=== PATIENT | male | born 1935 | race Caucasian/White ===

== ENCOUNTER 2016-11-22 12:43 | Emergency (ER) | payer MEDICARE ==
[2016-11-22 13:07] VITALS: BP 129/63
[2016-11-22] MEDS ORDERED: Tetan/Diph/Pertus SYR(Tdap)* 0.5 ML SYR(BOOSTRIX) use SYR IM ONE (13:58)
--- NOTE | 2016-11-22 14:27 | ED ---
Laceration/Wound HPI - HPI Summary HPI Summary: 81 yo male presents with left volar wrist laceration after slipping while using a box stamper. He was holding up a bag of ice melter with his left hand, when he used a box stamper with his right hand and slipped cutting himself. Patient' s tetanus is not up to date. He denies numbness, tingling or weakness. Patient can move wrist and all extremities. Patient denies copious bleeding. He does take an aspirin for his h/o heart disease. - History of Current Complaint Stated Complaint: LT WRIST LAC Pain Intensity: 0 - Allergy/Home Medications Allergies/Adverse Reactions: Allergies Allergy/AdvReac Type Severity Reaction Status Date / Time Cumin Oil Allergy Severe Anaphylatic Verified 03/19/16 12:16 Shock Pyridoxine [From Beesix] Allergy anaphalacti Verified 08/03/13 08:22 c PMH/Surg Hx/FS Hx/Imm Hx Endocrine/Hematology History: Reports: Hx Thyroid Disease - synthroid Cardiovascular History: Reports: Hx Aneurysm - known AAA, Hx Angina, Hx Angioplasty - 1992, Hx Coronary Artery Disease, Hx Hypercholesterolemia, Hx Hypertension, Hx Myocardial Infarction, Other Cardiovascular Problems/Disorders - thoracic aneurysm (5.5 cm?) History: Reports: Hx Kidney Stones - after first [place] Musculoskeletal History: Reports: Hx Gout - "long time ago" Sensory History: Reports: Hx Contacts or Glasses Opthamlomology History: Reports: Hx Contacts or Glasses - Surgical History Surgery Procedure, Year, and Place: cardiac bypass 2002 Hx Anesthesia Reactions: No Infectious Disease History: No Infectious Disease History: Denies: Hx of Known/Suspected MRSA, Hx Shingles, Hx Tuberculosis, Traveled Outside the [place] in Last 30 Days - Family History Known Family History: Positive: Cardiac Disease - Social History Lives: Alone Alcohol Use: None Substance Use Type: Reports: None Smoking Status (MU): Never Smoked Tobacco Review of Systems All Other Systems Reviewed And Are Negative: Yes Physical Exam - Summary Physical Exam Summary: GENERAL: Well appearing, No acute distress, well nourished. HEENT: Head atraumatic/normocephalic, EOMI/RAVEN, conjunctiva clear NECK: Supple with normal range of motion during conversation. MUSCULOSKELETAL: Moves all extremities well. There is no peripheral edema. SKIN: Warm and dry, skin color reflects adequate perfusion. Left volar wrist with 1cm shallow laceration lateral orientation with slow bleeding controlled with pressure. Bleeding easily restarts with manipulation of the wound. Small underlying hematoma. N/v intact distal to injury. FROM of all digits and wrist. Strength of digits and wrist intact. NEUROLOGICAL: Patient is alert and appropriate. Cranial nerves are grossly intact. PSYCHIATRIC: Appropriate affect. Vital Signs On Initial Exam: Initial Vitals Temp Pulse Resp BP Pulse Ox 98.1 F 71 16 129/63 99 11/22/16 13:04 11/22/16 13:04 11/22/16 13:04 11/22/16 13:04 11/22/16 13:04 Procedures - Laceration/Wound Repair 1 Location: upper extremity Description: Linear Anesthesia: Local, 1.0% Length, Depth and Shape: left volar wrist 1cm laceration x 1mm. linear. slow bleeding. Wound examined no signs of tendon injury, examined through FROM of wrist and digits. Betadine Prep?: Yes - irrigated with saline copious Laceration/Wound Explored: clean Suture Type: Nylon - 5-0 Number of Sutures: 2 Layer Closure?: No Sterile Dressing Applied?: Yes - slight oozing at suture site. Minimal bleeding in bandage. Diagnostics - Vital Signs Vital Signs Temp Pulse Resp BP Pulse Ox 11/22/16 13:04 98.1 F 71 16 129/63 99 - Laboratory Lab Statement: Any lab studies that have been ordered have been reviewed, and results considered in the medical decision making process. Re-Evaluation - Re-Evaluation First Eval Change: Improved - Slight bleeding into bandage. Bandage replaced and no active bleeding. Laceration Repair Course/Dx - Course Assessment/Plan: 81yo male presents with laceration to left volar wrist after trying to open a bag of salt with a box stamper. History supports injury. No concern for self injurious behaviors. Slow persistent bleeding, without numbness , tingling or weakness. No signs/symptoms of tendon injury. N/v intact. Laceration repaired and tdap given. Some bleeding at sight of sutures, resolved with bandaging. Small hematoma at sight without expansion. Discussed watching for signs of infection. Patient to return with any problems, concerns or worsening symptoms. - Clinical Impression Provider Diagnoses: Laceration of wrist, Need for Tdap vaccination Discharge - Discharge Plan Condition: Good Disposition: HOME Patient Education Materials: Care For Your Stitches (ED), Laceration (ED) Referrals: Keli Dawson MD [Primary Care Provider] - 2 Days Additional Instructions: Please watch for signs of infection (redness, swelling or discharge). Please return with any problems, concerns or worsening symptoms. You should have your sutures removed in 10-12 days.
== END 2016-11-22 15:59 | disposition home or self-care (01) ==
LOC: ED 12:43
DX: S61.512A Laceration without foreign body of left wrist, initial encounter (principal); W26.0XXA Contact with knife, initial encounter; Y93.9 Activity, unspecified; Y92.9 Unspecified place or not applicable; Y99.9 Unspecified external cause status
CPT/HCPCS: 12001; 90471; 90715; 99282

== ENCOUNTER 2017-12-06 11:40 | Emergency (ER) | payer MEDICARE ==
[2017-12-06 13:23] LABS: ABS Basophils 0.1 10^3/ul (0-0.2); ABS Eosinophils 0.2 10^3/ul (0-0.6); ABS Monocytes 0.7 10^3/ul (0-0.8); ABS Neutrophils 4.4 10^3/ul (1.5-7.7); ABS Nucleated RBC 0 10^3/ul; Eosinophil % 2.1 % (0-6); Hematocrit 47 % (42-52); Hemoglobin 15.5 g/dl (14.0-18.0); Lymphocyte % 27.6 % (25-47); Mean Corpuscular HGB Conc 33 g/dl (31-36); Mean Corpuscular Hemoglobin 33 pg (27-31); Mean Corpuscular Volume 99 fL (80-94); Mean Platelet Volume 11 um3 (7.4-10.4); Nucleated Red Blood Cells % 0.1; Platelet Count 183 10^3/ul (150-450); Red Blood Count 4.73 10^6/ul (4.0-5.4); Red Cell Distribution Width 14 % (10.5-15); White Blood Count 7.4 10^3/ul (3.5-10.8)
[2017-12-06] MEDS ORDERED: NS 0.9% 1000 ML* 1,000 ML IV ONE (13:41)
[2017-12-06 13:47] LABS: INR 0.94 (0.77-1.02)
[2017-12-06 14:32] LABS: EGFR Non-African American 78.2 (>60)
[2017-12-06 17:02] VITALS: BP 139/83
--- NOTE | 2017-12-06 23:25 | ED ---
Luisana Douglas Jason, scribed for Jeffery Castaneda MD on 12/06/17 at 1250 . GI/ HPI - HPI Summary HPI Summary: This patient is a 82 year old M presenting to [facility] with a chief complaint of dehydration since 8 days ago. The patient states that he has been experiencing diarrhea since 8 days ago and dizziness since 5 days ago. The patient includes he has been drinking water regularly and drinks water with his thyroid medication. Pt denies any abdominal pain or vomiting. Patient reports some change in color to his stools, which appeared dark in color. - History of Current Complaint Chief Complaint: EDNauseaVomitDiarrh Time Seen by Provider: 12/06/17 12:24 Stated Complaint: WEAKNESS Hx Obtained From: Patient Onset/Duration: Started Days Ago - 8 days ago, Still Present Timing: Constant Pain Intensity: 0 Associated Signs and Symptoms: Positive: Dizziness, Diarrhea, Other: - dehydration, black stool. Negative: Weakness, Syncope, Nausea, Rectal Pain, Discharge, Blood w/Stool, Diaphoresis Aggravating Factor(s): Nothing Alleviating Factor(s): Nothing - Risk Factors GI Bleed Risk Factor(s): ASA, Coumadin - Allergy/Home Medications Allergies/Adverse Reactions: Allergies Allergy/AdvReac Type Severity Reaction Status Date / Time Cumin Oil Allergy Severe Anaphylatic Verified 03/19/16 12:16 Shock Pyridoxine [From Beesix] Allergy anaphalacti Verified 08/03/13 08:22 c Home Medications: Home Medications Aspirin EC Low Dose* [Ecotrin EC Low Dose 81 MG*] 81 mg PO DAILY 12/06/17 [ History Confirmed 12/06/17] Coenzyme Q10 (Ubidecarenone) [Co-Enzyme Q10] 100 mg PO DAILY 12/06/17 [History Confirmed 12/06/17] Famotidine TAB* [Pepcid 20 MG TAB*] 40 mg PO BID 12/06/17 [History Confirmed ] Fluocinonide 0.05% CREAM(NF) 1 applic TOPICAL BID 12/06/17 [History Confirmed ] Fluvastatin(NF) [Lescol(NF)] 20 mg PO DAILY 12/06/17 [History Confirmed 12/06/17 ] Metoprolol Succinate XL TAB* [Toprol XL TAB*] 25 mg PO QPM 12/06/17 [History Confirmed 12/06/17] Metoprolol Succinate XL TAB* [Toprol XL TAB*] 50 mg PO QAM 12/06/17 [History Confirmed 12/06/17] Nitroglycerin TAB 0.4 MG* 0.4 mg SL Q5M PRN 12/06/17 [History Confirmed 12/06/17 ] PMH/Surg Hx/FS Hx/Imm Hx Previously Healthy: No Endocrine/Hematology History: Reports: Hx Thyroid Disease - synthroid Cardiovascular History: Reports: Hx Aneurysm - known AAA, Hx Angina, Hx Angioplasty - 1992, Hx Coronary Artery Disease, Hx Hypercholesterolemia, Hx Hypertension, Hx Myocardial Infarction, Other Cardiovascular Problems/Disorders - thoracic aneurysm (5.5 cm?) History: Reports: Hx Kidney Stones - after first [place] Musculoskeletal History: Reports: Hx Gout - "long time ago" Sensory History: Reports: Hx Contacts or Glasses Opthamlomology History: Reports: Hx Contacts or Glasses - Surgical History Surgery Procedure, Year, and Place: cardiac bypass 2002 Hx Anesthesia Reactions: No Infectious Disease History: No Infectious Disease History: Denies: Hx of Known/Suspected MRSA, Hx Shingles, Hx Tuberculosis, Traveled Outside the [place] in Last 30 Days - Family History Known Family History: Positive: Cardiac Disease Negative: Blood Disorder - Social History Occupation: Retired Alcohol Use: None Substance Use Type: Reports: None Smoking Status (MU): Never Smoked Tobacco Review of Systems Positive: Chills Positive: Diarrhea. Negative: Vomiting Neurological: Other - dizzyness Positive: Anxious All Other Systems Reviewed And Are Negative: Yes Physical Exam - Summary Physical Exam Summary: Appearance: Well-appearing, no distress, Well-nourished Skin: Warm, color reflects adequate perfusion Head: Normal Head/Face inspection Eyes: Conjunctiva clear/normal ENT: Normal inspection Neck: Supple, no nodes, no JVD. Respiratory: Lungs clear, Normal breath sounds, no respiratory distress Cardio: RRR, No murmur, pulses normal, brisk capillary refill Abdomen: soft, nontender, no guarding, no rebound Bowel sounds: present Rectal exam: nontender; normal tone; no gross blood; heme occult negative Musculoskeletal: Strength Intact/ ROM intact. No calf tenderness. No edema. Neuro: Alert, muscle tone normal, facial symmetry, speech normal, sensory/motor intact Psychological: Normal Triage Information Reviewed: Yes Vital Signs On Initial Exam: Initial Vitals Temp Pulse Resp BP Pulse Ox 97.2 F 62 18 153/78 100 12/06/17 11:49 12/06/17 11:49 12/06/17 11:49 12/06/17 11:49 12/06/17 11:49 Vital Signs Reviewed: Yes Diagnostics - Vital Signs Vital Signs Temp Pulse Resp BP Pulse Ox 12/06/17 11:49 97.2 F 62 18 153/78 100 - Laboratory Lab Results: Lab Results 12/06/17 12/06/17 12/06/17 Range/Units 13:11 13:11 13:11 WBC 7.4 (3.5-10.8) 10^3/ul RBC 4.73 (4.0-5.4) 10^6/ul Hgb 15.5 (14.0-18.0) g/dl Hct 47 (42-52) % MCV 99 H (80-94) fL MCH 33 H (27-31) pg MCHC 33 (31-36) g/dl RDW 14 (10.5-15) % Plt Count 183 (150-450) 10^3/ul MPV 11 H (7.4-10.4) um3 Neut % (Auto) 60.1 (38-83) % Lymph % (Auto) 27.6 (25-47) % Meade % (Auto) 9.1 H (1-9) % Eos % (Auto) 2.1 (0-6) % Baso % (Auto) 1.1 (0-2) % Absolute Neuts (auto) 4.4 (1.5-7.7) 10^3/ul Absolute Lymphs (auto) 2.0 (1.0-4.8) 10^3/ul Absolute Monos (auto) 0.7 (0-0.8) 10^3/ul Absolute Eos (auto) 0.2 (0-0.6) 10^3/ul Absolute Basos (auto) 0.1 (0-0.2) 10^3/ul Absolute Nucleated RBC 0 10^3/ul Nucleated RBC % 0.1 INR (Anticoag Therapy) 0.94 (0.77-1.02) APTT 25.9 L (26.0-36.3) seconds Sodium 137 (133-145) mmol/L Potassium 4.4 (3.5-5.0) mmol/L Chloride 104 (101-111) mmol/L Carbon Dioxide 28 (22-32) mmol/L Anion Gap 5 (2-11) mmol/L BUN 17 (6-24) mg/dL Creatinine 0.93 (0.67-1.17) mg/dL Est GFR ( Amer) 100.5 (>60) Est GFR (Non-Af Amer) 78.2 (>60) BUN/Creatinine Ratio 18.3 (8-20) Glucose 81 (70-100) mg/dL Calcium 9.5 (8.6-10.3) mg/dL Total Bilirubin 0.50 (0.2-1.0) mg/dL AST 19 (13-39) U/L ALT 14 (7-52) U/L Alkaline Phosphatase 84 (34-104) U/L Total Protein 6.7 (6.4-8.9) g/dL Albumin 4.0 (3.2-5.2) g/dL Globulin 2.7 (2-4) g/dL Albumin/Globulin Ratio 1.5 (1-3) Blood Type Antibody Screen 12/06/17 Range/Units 13:11 WBC (3.5-10.8) 10^3/ul RBC (4.0-5.4) 10^6/ul Hgb (14.0-18.0) g/dl Hct (42-52) % MCV (80-94) fL MCH (27-31) pg MCHC (31-36) g/dl RDW (10.5-15) % Plt Count (150-450) 10^3/ul MPV (7.4-10.4) um3 Neut % (Auto) (38-83) % Lymph % (Auto) (25-47) % Meade % (Auto) (1-9) % Eos % (Auto) (0-6) % Baso % (Auto) (0-2) % Absolute Neuts (auto) (1.5-7.7) 10^3/ul Absolute Lymphs (auto) (1.0-4.8) 10^3/ul Absolute Monos (auto) (0-0.8) 10^3/ul Absolute Eos (auto) (0-0.6) 10^3/ul Absolute Basos (auto) (0-0.2) 10^3/ul Absolute Nucleated RBC 10^3/ul Nucleated RBC % INR (Anticoag Therapy) (0.77-1.02) APTT (26.0-36.3) seconds Sodium (133-145) mmol/L Potassium (3.5-5.0) mmol/L Chloride (101-111) mmol/L Carbon Dioxide (22-32) mmol/L Anion Gap (2-11) mmol/L BUN (6-24) mg/dL Creatinine (0.67-1.17) mg/dL Est GFR ( Amer) (>60) Est GFR (Non-Af Amer) (>60) BUN/Creatinine Ratio (8-20) Glucose (70-100) mg/dL Calcium (8.6-10.3) mg/dL Total Bilirubin (0.2-1.0) mg/dL AST (13-39) U/L ALT (7-52) U/L Alkaline Phosphatase (34-104) U/L Total Protein (6.4-8.9) g/dL Albumin (3.2-5.2) g/dL Globulin (2-4) g/dL Albumin/Globulin Ratio (1-3) Blood Type O Negative Antibody Screen Negative Result Diagrams: 12/06/17 13:11 12/06/17 13:11 Lab Statement: Any lab studies that have been ordered have been reviewed, and results considered in the medical decision making process. Re-Evaluation - Re-Evaluation First Eval Re-Evaluation Time: 02:30 Change: Improved - The patient is feeling better and is hemodynamically stable. His stool occult blood test is negative. Patient's status will continue to be monitored. Second Eval Re-Evaluation Time: 16:28 Change: Improved - pt continues to be hemodynamically stable. Pt with no evidence of melena on exam or occult stool evaluation. HGB wnl. Pt with no diarrhea in the ED. Plan for d/c with f/u with GI. GIGU Course/Dx - Course Course Of Treatment: The patient was given IV fluids with symptomatic improvement. Pt hemodynamically stable. Pt occult stool negative. Pt advised to f/u with GI, however will return if diarrhea persists, gross red blood in stool , or change in color to stools. - Diagnoses Differential Diagnoses - Male: Constipation, Diverticulitis, Diverticulosis, Gastritis, Neoplasm, Other - GI bleed Provider Diagnoses: Colitis Discharge - Discharge Plan Condition: Improved Disposition: HOME Patient Education Materials: Colitis (ED) Referrals: Keli Dawson MD [Primary Care Provider] - Angel Benitez MD [Medical Doctor] - 3 Days Additional Instructions: RETURN TO THE EMERGENCY DEPARTMENT FOR CHANGING OR WORSENING SYMPTOMS. The documentation as recorded by the Luisana aguilar Jason accurately reflects the service I personally performed and the decisions made by , Jeffery Castaneda MD.
== END 2017-12-06 17:02 | disposition home or self-care (01) ==
LOC: ED 11:40
DX: K52.9 Noninfective gastroenteritis and colitis, unspecified (principal); R42 Dizziness and giddiness; R19.7 Diarrhea, unspecified; R86.0 Abnormal level of enzymes in specimens from male genital organs; E86.0 Dehydration
CPT/HCPCS: 36415; 80053; 82270; 85025; 85610; 85730; 86850; 86900; 86901; 96360; 99283

== ENCOUNTER 2018-09-19 10:31 | Day surgery (SDC) | payer MEDICARE ==
[~2018-09-19 10:31] MED LIST: Acetaminophen TAB* 325 MG PO PRN; Buffered Lidocaine 0.9% SYRIN* 5 ML/SYR SYRINGE INTRADERM ONE
[2018-09-19] MEDS ORDERED: fentaNYL* 50 MCG/ML 2 ML VIAL (100 MCG VIAL) ONE (12:39)
[2018-09-19] MEDS ORDERED: Propofol* 10 MG/ML 20 ML BTL IV PUSH ONE (13:15)
[2018-09-19] MEDS ORDERED: Lidocaine 2% PF * 5 ML VIAL ONE (13:15)
[2018-09-19 13:34] VITALS: BP 140/92
[2018-09-19] MEDS ORDERED: Neomycin/Polymy/Dex OPTH.SUSP* MAXITROL 0.1% 5 ML ONE (14:47)
[2018-09-19] MEDS ORDERED: Cyclopentolate 1% OPTH.SOL* 2 ML BTL ONE (14:47)
[2018-09-19] MEDS ORDERED: Phenylephrine 2.5% OPTH.SOL* 2 ML BTL ONE (14:47)
[2018-09-19] MEDS ORDERED: Ketorolac 0.5% OPHTH (NF) 0.5 % 5 ML BTL ONE (14:47)
[2018-09-19] MEDS ORDERED: Proparacaine 0.5% OPHTH.SOL* 15 ML BTL ONE (14:47)
[2018-09-19] MEDS ORDERED: Lidocaine 2% EPI 1:200000 MPF*10-20 ML VIAL ONE (14:47)
[2018-09-19] MEDS ORDERED: acetaZOLAMIDE TAB* 250 MG ONE (14:47)
[2018-09-19] MEDS ORDERED: Lidocaine 1%* 5 ML VIAL ONE (14:47)
[2018-09-19] MEDS ORDERED: Povidone Iodine 5% OPTH* 30 ML BTL ONE (14:47)
--- NOTE | 2018-09-20 01:57 | OP ---
DATE OF OPERATION: 09/19/18 [facility] DATE OF : 39 SURGEON: Jesus Natarajan MD PREOPERATIVE DIAGNOSIS: Cataract left eye. POSTOPERATIVE DIAGNOSIS: Cataract left eye. OPERATIVE PROCEDURE: Extracapsular cataract extraction with intraocular lens implant left eye. DESCRIPTION OF PROCEDURE: The patient was brought to the operating room after being given 1/2% Alcaine with epinephrine drops in the preoperative area. The eye was prepped and draped in the usual sterile fashion. Sterile drape and eyelid speculum were placed. Again, topical 1/2% Alcaine with epinephrine was given. A paracentesis incision was made at the 3 o'clock position with the No.75 blade. Clear cornea incision 2.2 x 2.2-mm was created at the 6 o'clock position starting at the anterior limbus using the 2.2-mm keratome. The anterior chamber was irrigated with 0.4 mL of 1% non-preservative intracameral lidocaine and filled with DisCoVisc. A capsulorrhexis was completed using the cystotome and the Utrata forceps. Hydrodissection was performed with balanced salt solution. The lens nucleus was removed with the Phacoemulsification handpiece without incident. Cortex was removed with the irrigation-aspiration handpiece. The capsular bag was re-inflated using DisCoVisc and an [id number] implant was inserted with the shooter. The irrigation-aspiration handpiece was used to remove all residual DisCoVisc. The eye was refilled with balanced salt solution and the wound checked and found to be watertight. Topical Maxitrol drops were given. [id number]/[facility] #: [id number] [facility]ISCH HOSPITALMichelle
== END 2018-09-19 13:42 | disposition home or self-care (01) ==
LOC: OREAST 10:31
PROVIDERS: ATTEND Specialist
DX: H25.12 Age-related nuclear cataract, left eye (principal); H43.813 Vitreous degeneration, bilateral; H52.222 Regular astigmatism, left eye; E03.9 Hypothyroidism, unspecified; I10 Essential (primary) hypertension; I25.2 Old myocardial infarction
CPT/HCPCS: A9270-GY; J2704; J3010; V2632

== ENCOUNTER → 2018-09-26 10:22 | Day surgery (SDC) | payer MEDICARE ==
[~2018-09-26 10:22] MED LIST changes: +Cyclopentolate 1% OPTH.SOL* 2 ML BTL ONE; +Ketorolac 0.5% OPHTH (NF) 0.5 % 5 ML BTL ONE; +Lidocaine 1%* 5 ML VIAL ONE; +Lidocaine 2% EPI 1:200000 MPF*10-20 ML VIAL ONE; +Midazolam* 1 MG/ML 2 ML VIAL (2 MG) ONE; +Neomycin/Polymy/Dex OPTH.SUSP* MAXITROL 0.1% 5 ML ONE; +Phenylephrine 2.5% OPTH.SOL* 2 ML BTL ONE; +Povidone Iodine 5% OPTH* 30 ML BTL ONE; +Proparacaine 0.5% OPHTH.SOL* 15 ML BTL ONE; +acetaZOLAMIDE TAB* 250 MG ONE
[2018-09-26 12:45] VITALS: BP 114/74
--- NOTE | 2018-09-26 13:16 | OP ---
DATE OF OPERATION: 09/26/2018. DATE OF : 1935. SURGEON: Jesus Natarajan M.D. PREOPERATIVE DIAGNOSIS: Cataract right eye. POSTOPERATIVE DIAGNOSIS: Cataract right eye. OPERATIVE PROCEDURE: Extracapsular cataract extraction with intraocular lens implant right eye. PROCEDURE: The patient was brought to the operating room after being given 1/2% Alcaine with epineph rine drops in the preoperative area. The eye was prepped and draped in the usual sterile fashion. S terile drape and eyelid speculum were placed. Again, topical 1/2% Alcaine with epinephrine was given . A paracentesis incision was made at the 9 o'clock position with the No.75 blade. Clear cornea inc ision 2.2 x 2.2-mm was created at the 12 o'clock position starting at the anterior limbus using the 2 .2-mm keratome. The anterior chamber was irrigated with 0.4 mL of 1% non-preservative intracameral l idocaine and filled with DisCoVisc. A capsulorrhexis was completed using the cystotome and the Utrat a forceps. Hydrodissection was performed with balanced salt solution. The lens nucleus was removed w ith the Phacoemulsification handpiece without incident. Cortex was removed with the irrigation-aspir ation handpiece. The capsular bag was re-inflated using DisCoVisc and an [id number] implant was inser panda with the shooter. The irrigation-aspiration handpiece was used to remove all residual DisCoVisc. The eye was refilled with balanced salt solution and the wound checked and found to be watertight. Topical Maxitrol drops were given. [id number]/[facility] #: [id number]
== END | disposition home or self-care (01) ==
LOC: OREAST 10:22
PROVIDERS: ATTEND Specialist
DX: Z01.818 Encounter for other preprocedural examination (principal); H25.11 Age-related nuclear cataract, right eye; H43.813 Vitreous degeneration, bilateral; E03.9 Hypothyroidism, unspecified; I10 Essential (primary) hypertension; E78.00 Pure hypercholesterolemia, unspecified; Z96.1 Presence of intraocular lens
CPT/HCPCS: A9270-GY; J2250; V2632

== ENCOUNTER 2023-04-28 00:17 | Inpatient (IN) ==
[2023-04-28 01:41] LABS: ABS Lymphocytes 0.5 10^3/uL (1.0-4.8); ABS Monocytes 1.5 10^3/uL (0.0-1.1); ABS Neutrophils 15.1 10^3/uL (1.5-7.6); ABS Nucleated RBC 0.01 10^3/ul; Hematocrit 45.9 % (38-53); Hemoglobin 15.6 g/dL (13.2-16.3); Lymphocyte % 2.9 %; Mean Corpuscular Hemoglobin 33.5 pg (27-33); Mean Corpuscular Hgb Conc 33.9 g/dL (31-36); Mean Corpuscular Volume 98.6 fL (80-97); Mean Platelet Volume 9.8 fL (7.5-11.2); Nucleated Red Blood Cells % 0.1 /100 WBC (0.0-0.4); Platelet Count 201 10^3/uL (150-450); Red Blood Count 4.66 10^6/uL (4.06-5.63); Red Cell Distribution Width 13.8 % (12-17); White Blood Count 17.2 10^3/uL (3.6-10.2)
[2023-04-28 01:57] LABS: ALT 23 U/L (7-52); AST 32 U/L (13-39); Albumin/Globulin Ratio 1.3 (1-3); Alkaline Phosphatase 101 U/L (35-149); Anion Gap 13 mmol/L (2-16); Blood Urea Nitrogen 31 mg/dL (6-24); CO2 Carbon Dioxide 21 mmol/L (22-32); Calcium 9.1 mg/dL (8.6-10.3); Chloride 103 mmol/L (101-111); Creatinine, Serum 1.36 mg/dL (0.67-1.17); Glucose 155 mg/dL (70-100); Sodium 137 mmol/L (135-145); eGFR CKD-EPI 50.7 (>60)
[2023-04-28 02:18] LABS: Alcohol, S < 13 mg/dL (<13)
[2023-04-28 02:29] LABS: Creatine Kinase 1943 U/L (10-223)
[2023-04-28 02:37] LABS: High Sens Troponin Baseline 24 pg/mL (<20)
[2023-04-28 03:15] LABS: High Sensitivity Troponin 1 Hr 37 pg/mL (<20)
[2023-04-28] MEDS ORDERED: NS 0.9% 1000 ml BAG 1,000 ML IV ONE (04:04)
[2023-04-28 09:06] LABS: Urine Appearance Clear; Urine Bilirubin Negative (Negative); Urine Blood 2+ (Negative); Urine Color Yellow; Urine Glucose Negative (Negative); Urine Ketones Negative (Negative); Urine Nitrite Negative (Negative); Urine Protein 1+(30 mg/dL) (Negative); Urine Specific Gravity 1.019 (1.002-1.030); Urine Urobilinogen Negative (Negative)
[2023-04-28 09:09] LABS: Urine Bacteria Absent (Absent); Urine Granular Casts Present (Absent); Urine Red Blood Cell Trace(0-2/hpf) (Absent); Urine White Blood Cell Trace(0-5/hpf) (Absent)
[2023-04-28] MEDS ORDERED: Lactated Ringers 1000 ml BAG 1,000 ML IV ONE (09:33)
[2023-04-28] MEDS ORDERED: LORazepam 2 mg VIAL 1 ml IV PUSH ONE (11:17)
[2023-04-28] MEDS ORDERED: Lorazepam PYXIS KEY PRN (11:17)
[2023-04-28] MEDS ORDERED: Morphine 2 MG/ML SYRINGE IV PRN (11:18)
[2023-04-28 12:33] LABS: ABS Basophils 0.1 10^3/uL (0.0-0.1); ABS Lymphocytes 1.8 10^3/uL (1.0-4.8); ABS Monocytes 1.3 10^3/uL (0.0-1.1); Eosinophil % 0.2 %; Hematocrit 41.8 % (38-53); Hemoglobin 14.4 g/dL (13.2-16.3); Lymphocyte % 14.6 %; Mean Corpuscular Hemoglobin 32.9 pg (27-33); Mean Corpuscular Hgb Conc 34.4 g/dL (31-36); Mean Corpuscular Volume 95.6 fL (80-97); Mean Platelet Volume 9.6 fL (7.5-11.2); Platelet Count 185 10^3/uL (150-450); Red Blood Count 4.37 10^6/uL (4.06-5.63); Red Cell Distribution Width 13.9 % (12-17); White Blood Count 12.2 10^3/uL (3.6-10.2)
[2023-04-28 12:49] LABS: Blood Urea Nitrogen 24 mg/dL (6-24); CO2 Carbon Dioxide 26 mmol/L (22-32); Calcium 8.3 mg/dL (8.6-10.3); Chloride 106 mmol/L (101-111); Creatinine, Serum 1.05 mg/dL (0.67-1.17); Glucose 87 mg/dL (70-100); Sodium 139 mmol/L (135-145); eGFR CKD-EPI 69.1 (>60)
[2023-04-28 12:54] LABS: Anion Gap 7 mmol/L (2-16)
[2023-04-29 06:06] LABS: ABS Basophils 0.1 10^3/uL (0.0-0.1); ABS Eosinophils 0.2 10^3/uL (0.0-0.5); ABS Lymphocytes 2.1 10^3/uL (1.0-4.8); ABS Monocytes 1.1 10^3/uL (0.0-1.1); ABS Nucleated RBC 0.01 10^3/ul; Eosinophil % 2.6 %; Hemoglobin 14.4 g/dL (13.2-16.3); Lymphocyte % 21.8 %; Mean Corpuscular Hgb Conc 34.2 g/dL (31-36); Mean Corpuscular Volume 96.3 fL (80-97); Mean Platelet Volume 9.8 fL (7.5-11.2); Nucleated Red Blood Cells % 0.1 /100 WBC (0.0-0.4); Platelet Count 179 10^3/uL (150-450); Red Blood Count 4.36 10^6/uL (4.06-5.63); Red Cell Distribution Width 14.1 % (12-17); White Blood Count 9.5 10^3/uL (3.6-10.2)
[2023-04-29 06:18] LABS: Calcium 8.7 mg/dL (8.6-10.3); Creatinine, Serum 1.1 mg/dL (0.67-1.17); Magnesium 1.7 mg/dL (1.9-2.7); eGFR CKD-EPI 65.4 (>60)
[2023-04-29] MEDS ORDERED: NS 0.9% 1000 ml BAG 1,000 ML IV SCH (08:45)
[2023-04-29] MEDS ORDERED: Dextran 70/Hypromellose Tears Eye Drops 15 ml BTL (for Artificials Tears) BOTH EYES PRN (11:04)
[2023-04-30 06:25] LABS: Albumin 3.3 g/dL (3.2-5.2); Albumin/Globulin Ratio 1.3 (1-3); Calcium 8.6 mg/dL (8.6-10.3); Creatinine, Serum 0.97 mg/dL (0.67-1.17); Globulin 2.6 g/dL (2-4); Potassium 3.7 mmol/L (3.5-5.0); Total Protein 5.9 g/dL (6.4-8.9)
[2023-04-30] MEDS ORDERED: NS 0.9% 1000 ml BAG 1,000 ML IV SCH (08:00)
[2023-04-30] MEDS ORDERED: Morphine 2 MG/ML SYRINGE IV PRN (14:05)
[2023-04-30] MEDS ORDERED: Ketorolac 10 mg TAB (NF) PO ONE (14:05)
[2023-05-01 06:29] LABS: Albumin 3.2 g/dL (3.2-5.2); Albumin/Globulin Ratio 1.3 (1-3); Calcium 8.3 mg/dL (8.6-10.3); Creatinine, Serum 1.02 mg/dL (0.67-1.17); Globulin 2.5 g/dL (2-4); Potassium 3.9 mmol/L (3.5-5.0); Total Bilirubin 0.9 mg/dL (0.2-1.0); Total Protein 5.7 g/dL (6.4-8.9); eGFR CKD-EPI 71.6 (>60)
[2023-05-03 14:28] VITALS: BP 95/59
== END 2023-05-03 15:40 | DRG 565 ==
LOC: EDHOLD 00:17 → ED 00:17 → EDHOLD 12:48 → MED 13:59 → SUATTDRO 19:20
PROVIDERS: ADMIT Hospitalist; ATTEND Internal Medicine

== ENCOUNTER 2024-10-17 16:53 | Inpatient (IN) ==
[2024-10-17 17:38] LABS: ABS Basophils 0.2 10^3/uL (0.0-0.1); ABS Lymphocytes 1.8 10^3/uL (1.0-4.8); ABS Monocytes 1.5 10^3/uL (0.0-1.1); ABS Neutrophils 11.4 10^3/uL (1.5-7.6); Hematocrit 44.2 % (38-53); Hemoglobin 15.2 g/dL (13.2-16.3); Lymphocyte % 11.9 %; Mean Corpuscular Hemoglobin 33.7 pg (27-33); Mean Corpuscular Hgb Conc 34.3 g/dL (31-36); Mean Corpuscular Volume 98.2 fL (80-97); Mean Platelet Volume 9.2 fL (7.5-11.2); Platelet Count 231 10^3/uL (150-450); Red Cell Distribution Width 14.9 % (12-17); White Blood Count 14.9 10^3/uL (3.6-10.2)
[2024-10-17] MEDS: Lactated Ringers 1000 ml BAG IV.FLUID IV ONE (17:46)
[2024-10-17] MEDS: Piperacillin/Tazobac 3.375 BAG 3.375 GM/100 ML BAG IV ONE (17:56)
[2024-10-17 18:01] LABS: INR 1.13 (0.85-1.14)
[2024-10-17 18:31] LABS: Albumin 4.1 g/dL (3.2-5.2); Albumin/Globulin Ratio 1.5 (1-3); C Reactive Protein 75.52 mg/L (<8.01); Calcium 9.2 mg/dL (8.6-10.3); Creatinine, Serum 1.27 mg/dL (0.67-1.17); Globulin 2.8 g/dL (2-4); Potassium 4.3 mmol/L (3.5-5.0); Total Bilirubin 1.4 mg/dL (0.2-1.0); Total Protein 6.9 g/dL (6.4-8.9); eGFR CKD-EPI 54.7 (>60)
[2024-10-17 19:25] LABS: High Sensitivity Troponin 1 Hr 24 pg/mL (<20)
[2024-10-17 19:36] LABS: Urine Appearance Clear; Urine Bilirubin Negative (Negative); Urine Blood Negative (Negative); Urine Color Light-Yellow; Urine Glucose Negative (Negative); Urine Ketones Negative (Negative); Urine Nitrite Negative (Negative); Urine Protein Trace (Negative); Urine Specific Gravity 1.017 (1.002-1.030); Urine Urobilinogen Negative (Negative)
[2024-10-17] MEDS: Iodixanol 320 (CONTRAST) 100 ML SDV IV ONE (20:00)
[2024-10-17] MEDS: Acetaminophen IV 1 GM/100ML 1,000 MG/100 ML BAG IV ONE (20:25)
[2024-10-18] MEDS: DOXYcycline 100 MG in NS 0.9% 250 ml 250 ML IVPB SCH (00:06)
[2024-10-18] MEDS: cefTRIAXone 1 GM Q24H (ADVAN) IVPB SCH (05:56)
[2024-10-18] MEDS ORDERED: cefTRIAXone 1 gm/50 mL D5W 1 GM/50 ML BAG IV SCH (06:00)
[2024-10-18] MEDS: Acetaminophen IV 1 GM/100ML 1,000 MG/100 ML BAG IV PRN (09:41)
[2024-10-18] MEDS ORDERED: Metoprolol Tartrate 5 mg VIAL 5 ml VIAL (1 mg/ml) IV SCH (12:00)
[2024-10-18] MEDS: Metoprolol Tartrate 5 mg VIAL 5 ml VIAL (1 mg/ml) IV SCH ×3 (12:18→23:10)
[2024-10-18] MEDS ORDERED: Lorazepam PYXIS KEY PRN (18:32)
[2024-10-18] MEDS ORDERED: LORazepam 2 mg VIAL 1 ml IV PUSH ONE (18:33)
[2024-10-18] MEDS: Haloperidol 5 mg/ml SDV IV/IM 5 MG/ML AMP IM ONE (19:41)
[2024-10-18] MEDS ORDERED: DOXYcycline 100 MG in NS 0.9% 250 ml 250 ML IVPB SCH (23:00)
[2024-10-19] MEDS: cefTRIAXone 1 GM Q24H (ADVAN) IVPB SCH (05:29)
[2024-10-19 07:47] LABS: Anion Gap 12 mmol/L (2-16); Blood Urea Nitrogen 16 mg/dL (6-24); CO2 Carbon Dioxide 20 mmol/L (22-32); Calcium 8.5 mg/dL (8.6-10.3); Chloride 104 mmol/L (101-111); Creatinine, Serum 1.07 mg/dL (0.67-1.17); Glucose 95 mg/dL (70-100); Magnesium 1.7 mg/dL (1.9-2.7); Sodium 136 mmol/L (135-145); eGFR CKD-EPI 67.2 (>60)
[2024-10-19 08:00] LABS: ABS Basophils 0.1 10^3/uL (0.0-0.1); ABS Eosinophils 0.2 10^3/uL (0.0-0.5); ABS Lymphocytes 1.5 10^3/uL (1.0-4.8); ABS Monocytes 1.2 10^3/uL (0.0-1.1); ABS Neutrophils 10.5 10^3/uL (1.5-7.6); ABS Nucleated RBC 0.01 10^3/ul; Eosinophil % 1.2 %; Hematocrit 41.5 % (38-53); Hemoglobin 14.1 g/dL (13.2-16.3); Lymphocyte % 10.8 %; Mean Corpuscular Hemoglobin 33.7 pg (27-33); Mean Corpuscular Volume 99.1 fL (80-97); Nucleated Red Blood Cells % 0.1 %/100WBC (0.0-0.8); Platelet Count Platelets clumped. 10^3/uL (150-450); Red Blood Count 4.19 10^6/uL (4.06-5.63); Red Cell Distribution Width 14.9 % (12-17); White Blood Count 13.5 10^3/uL (3.6-10.2)
[2024-10-19 09:43] LABS: Potassium Redraw 3.6 mmol/L (3.5-5.0)
[2024-10-19] MEDS ORDERED: Ondansetron 4 mg VIAL 2 MG/ML 2 ml VIAL IV PRN (17:34)
[2024-10-19] MEDS: Enoxaparin 40 MG/0.4 ML SYR SUBCUT SCH (18:33)
[2024-10-20] MEDS: cefTRIAXone 1 gm/50 mL D5W 1 GM/50 ML BAG IV SCH (05:31)
[2024-10-20 08:11] LABS: ABS Basophils 0.1 10^3/uL (0.0-0.1); ABS Eosinophils 0.4 10^3/uL (0.0-0.5); ABS Lymphocytes 1.8 10^3/uL (1.0-4.8); ABS Monocytes 1.4 10^3/uL (0.0-1.1); ABS Neutrophils 7.1 10^3/uL (1.5-7.6); Eosinophil % 3.4 %; Hematocrit 40.1 % (38-53); Hemoglobin 13.8 g/dL (13.2-16.3); Lymphocyte % 16.7 %; Mean Corpuscular Hemoglobin 33.8 pg (27-33); Mean Corpuscular Hgb Conc 34.5 g/dL (31-36); Mean Corpuscular Volume 98.1 fL (80-97); Platelet Count 203 10^3/uL (150-450); Red Blood Count 4.09 10^6/uL (4.06-5.63); Red Cell Distribution Width 14.8 % (12-17); White Blood Count 10.6 10^3/uL (3.6-10.2)
[2024-10-20 08:56] LABS: Creatinine, Serum 1.08 mg/dL (0.67-1.17); Potassium 3.7 mmol/L (3.5-5.0); eGFR CKD-EPI 66.4 (>60)
[2024-10-22 05:54] VITALS: BP 123/82
== END 2024-10-22 10:30 | DRG 193 ==
LOC: EDHOLD 16:53 → ED 16:53 → SUATTDRO 21:43 → MED 10-18 07:29
PROVIDERS: ADMIT Internal Medicine; ATTEND Internal Medicine